=== PATIENT | male | born 1955 | race Hispanic/Latino ===

== ENCOUNTER 2018-10-28 18:45 | Emergency (ER) | payer OTHER ==
[2018-10-28 19:25] VITALS: BP 119/79; PULSE 79; RESP 18; TEMP 97.4; O2SAT 97
[2018-10-28] MEDS ORDERED: Tetanus/Diphtheria Toxoids 0.5 ml Syringe IM ONE (19:33)
--- NOTE | 2018-10-28 20:03 | C.PDOC ---
History Of Present Illness 63 y/o male presents to the ED for evaluation of head injury. States he tripped and fell backwards onto a sharp fence, sustaining two lacerations to the scalp. No LOC. He denies any nausea, vomiting, dizziness, visual changes, weakness, or severe headache. Patient admitted to having a few drinks tonight after dinner. He denies falling to the ground. No other injuries. - HPI Time Seen by Provider: 10/28/18 19:20 Chief Complaint (Nursing): Trauma History Per: Patient History/Exam Limitations: no limitations Onset/Duration Of Symptoms: Mins Injury Occurred (Timing): Just Before Arrival Location Of Injury: Posterior: Head Past Medical History Reviewed: Historical Data, Nursing Documentation, Vital Signs Vital Signs: Last Vital Signs Temp 97.4 F L 10/28/18 18:54 Pulse 79 10/28/18 18:54 Resp 18 10/28/18 18:54 BP 119/79 10/28/18 18:54 Pulse Ox 97 10/28/18 18:54 Other Surgeries: Bilateral knee surgery Family History: States: No Known Family Hx - Social History Hx Alcohol Use: Yes Hx Substance Use: No - Immunization History Hx Tetanus Toxoid Vaccination: No Hx Influenza Vaccination: Yes Hx Pneumococcal Vaccination: No Review Of Systems Except As Marked, All Systems Reviewed And Found Negative. Constitutional: Negative for: Fever Eyes: Negative for: Vision Change Cardiovascular: Negative for: Chest Pain Respiratory: Negative for: Shortness of Breath Gastrointestinal: Negative for: Nausea, Vomiting Skin: Positive for: Lesions (to posterior scalp). Negative for: Rash Neurological: Positive for: Headache. Negative for: Weakness, Numbness, Change in Speech, Dizziness Physical Exam - Physical Exam Appears: Non-toxic, No Acute Distress Skin: Warm, Dry Head: Normacephalic, Swelling (Small hematoma near the laceration on the right of scalp), Laceration (two lacerations to posterior scalp - one 5cm and one 4.5cm, no foreign body visualized, minimal active bleeding) Eye(s): bilateral: Normal Inspection, PERRL, EOMI Nose: Normal Oral Mucosa: Moist Neck: Normal ROM, No Midline Cervical Tenderness, No Paracervical Tenderness, Supple Chest: Symmetrical Respiratory: No Accessory Muscle Use, Other (Normal inspiratory effort) Extremity: Bilateral: Atraumatic, Normal Color And Temperature Neurological/Psych: Oriented x3, Normal Speech, Normal Cranial Nerves, Normal Motor, Normal Sensation Gait: Steady ED Course And Treatment O2 Sat by Pulse Oximetry: 97 (RA) Pulse Ox Interpretation: Normal Progress Note: Lacerations repaired without difficulty *see procedure note*. Tolerated well by patient. Tetanus booster given in the ED. Patient given instructions for head injury. CT scan not indicated at this time. Return precautions discussed in detail. Patient is understanding of and agreeable to discharge plan. Laceration - Laceration Repair posterior scalp Wound Length (In cm): 9.5 Description Of Wound: Linear Wound Cleansed With: Sterile Saline Wound Examination: Irrigated With Saline, No FB With Wound Exploration Wound Closure: Ambler (x 11) Wound Complexity: Simple (Pt tolerated well, remained neurologically stable, conversing with friend at bedside) Disposition Counseled Patient/Family Regarding: Diagnosis, Need For Followup, Rx Given - Disposition Referrals: Denton Díaz [Staff Provider] - Disposition: HOME/ ROUTINE Disposition Time: 20:01 Condition: STABLE Additional Instructions: Follwo wound care instructions as directed Take tylenol or advil for fever Take concussion precautions for at least 72 hrs Return to ER if severe headache, lethargy, vomiting, weakness or any other signs of concussion Instructions: Laceration Repair With Ambler (DC), Head Injury (ED) Forms: [employer] (Georgian) - Clinical Impression Clinical Impression: Scalp laceration - PA / SURVEY TECHNOLOGIST / Resident Statement MD/DO has reviewed & agrees with the documentation as recorded. - Scribe Statement The provider has reviewed the documentation as recorded by the Scribdavid Bhatia All medical record entries made by the Scribe were at my direction and personally dictated by me. I have reviewed the chart and agree that the record accurately reflects my personal performance of the history, physical exam, medical decision making, and the department course for this patient. I have also personally directed, reviewed, and agree with the discharge instructions and disposition.
[2018-10-28] MEDS ORDERED: Tdap Vaccine 0.5 ml Vial (10-64 yrs) IM ONE (20:23)
== END 2018-10-28 20:31 | disposition home or self-care (01) ==
LOC: C.ER 18:45
DX: S01.01XA Laceration without foreign body of scalp, initial encounter (principal); W01.0XXA Fall on same level from slipping, tripping and stumbling without subsequent striking against object, initial encounter